=== PATIENT | female | born 1960 | race Caucasian/White ===

== ENCOUNTER → 2016-05-06 | Outpatient (CLI) | payer SELFPAY ==
--- NOTE | 2016-05-06 13:53 | CPEKG ---
Heart Rate: 63 RR Interval: 952 P-R Interval: 176 QRSD Interval: 76 QT Interval: 408 QTC Interval: 418 P [place]: 10 QRS [place]: -10 T Wave [place]: 35 EKG Severity - ABNORMAL ECG - EKG Impression: SINUS RHYTHM EKG Impression: POOR R WAVE PROGRESSION, CONSIDER ANTEROSEPTAL INFARCT AGE INDETERMINATE Electronically Signed By: Oumar Pierre 06-May-2016 21:14:19
== END ==
LOC: FCP 13:34
PROVIDERS: ATTEND Otolaryngology
DX: R94.31 Abnormal electrocardiogram [ECG] [EKG] (principal)